=== PATIENT | female | born 1985 | race Caucasian/White ===

== ENCOUNTER 2018-02-20 22:19 | Observation (INO) | payer MEDICAID ==
[2018-02-20] MEDS ORDERED: PREN-96 PO (23:40)
== END 2018-02-20 23:27 | disposition home or self-care (01) | DRG 566 ==
LOC: LDRP 22:19
PROVIDERS: ADMIT Obstetrics & Gynecology; ATTEND Obstetrics & Gynecology
DX: O26.892 Other specified pregnancy related conditions, second trimester (principal); R10.2 Pelvic and perineal pain; M54.5 Low back pain; R10.30 Lower abdominal pain, unspecified; Z90.49 Acquired absence of other specified parts of digestive tract; Z87.442 Personal history of urinary calculi; Z87.891 Personal history of nicotine dependence; Z3A.25 25 weeks gestation of pregnancy
CPT/HCPCS: 59025; 81002; G0378

== ENCOUNTER 2019-03-25 14:11 | Emergency (ER) | payer MEDICAID ==
[~2019-03-25] VITALS: Ht 170.2 cm; Wt 97.5 kg
[~2019-03-25 14:11] MED LIST: PREN-96 PO
[2019-03-25 14:25] VITALS: BP 115/80
[2019-03-25] MEDS ORDERED: SUMAtriptan SUCCINATE 6 MG/0.5 ML VL SC ONE (15:15)
== END 2019-03-25 16:06 | disposition home or self-care (01) ==
LOC: ER 14:11
DX: G43.909 Migraine, unspecified, not intractable, without status migrainosus (principal); Z79.899 Other long term (current) drug therapy
CPT/HCPCS: 96372; 99283; J3030

== ENCOUNTER 2019-10-15 00:35 | Emergency (ER) | payer MEDICAID ==
[~2019-10-15] VITALS: Ht 170.2 cm; Wt 95.3 kg
[2019-10-15 01:21] LABS: Urine Bacteria MOD /hpf (None Seen); Urine Blood 2+ /uL (Negative); Urine Mucus FEW (None Seen); Urine Specific Gravity 1.036 (1.001-1.035); Urine WBC 100 /hpf (0 - 5)
[2019-10-15 01:24] LABS: Basophils # (auto) 0.1 uL; Basophils % (auto) 0.8 % (0.0-2.0); Eosinophils # (auto) 0.1 uL; Eosinophils % (auto) 0.5 % (0.0-7.0); Hematocrit 43.4 % (36.0-46.0); Hemoglobin 14.6 g/dL (12.2-16.2); Lymphocytes # (auto) 2.9 uL; Lymphocytes % (auto) 21.6 % (10.0-50.0); Mean Corpuscular Hemoglobin 29.1 pg (28.0-32.0); Mean Corpuscular Hgb Conc. 33.6 g/dL (32.0-36.0); Mean Corpuscular Volume 86.5 fL (80.0-100.0); Monocytes % (auto) 7.3 % (0.0-12.0); Neutrophils # (auto) 9.3 uL; Neutrophils % (auto) 69.8 % (37.0-80.0); Platelet Count (auto) 373 10^3/uL (140-450); Red Blood Cells 5.02 10^6/uL (4.0-5.20); Red Cell Distribution Width 13.3 % (11.8-14.3); White Blood Cell 13.4 10^3/uL (4.4-10.8)
[2019-10-15] MEDS ORDERED: SODIUM CHLORIDE 0.9% 500 ML IV ONE (01:28)
[2019-10-15] MEDS ORDERED: ONDANSETRON HCL 4 MG/2 ML VIAL IV ONE (01:30)
[2019-10-15 01:44] LABS: Albumin 3.6 g/dL (3.4-5.0); BUN/Creatinine Ratio 17.4; Calcium 8.5 mg/dL (8.5-10.1); Potassium 3.6 mmol/L (3.5-5.1)
[2019-10-15 01:46] LABS: Bilirubin, Total 0.3 mg/dL (0.2-1.0); Total Protein 7.6 g/dL (6.4-8.2)
[2019-10-15] MEDS ORDERED: PROMETHAZINE HCL 25 MG/ML 1ML IV ONE ×2 (04:15→06:15)
[2019-10-15] MEDS ORDERED: ONDANSETRON ODT 4 MG TAB PO ONE (05:30)
[2019-10-15 06:07] VITALS: BP 112/76
== END 2019-10-15 07:03 | disposition home or self-care (01) ==
LOC: ER 00:35
DX: O21.0 Mild hyperemesis gravidarum (principal); O23.41 Unspecified infection of urinary tract in pregnancy, first trimester; Z3A.01 Less than 8 weeks gestation of pregnancy
CPT/HCPCS: 36415; 76817; 80053; 81001; 82150; 83690; 84702; 85025; 96361; 96374; 96375; 96376; 99284; J2405; J2550; J7040; Q0162

== ENCOUNTER 2022-02-26 12:17 | Emergency (ER) | payer MEDICAID ==
[~2022-02-26] VITALS: Ht 170.2 cm; Wt 94.8 kg
[2022-02-26 12:18] VITALS: BP 115/82
[2022-02-26] MEDS ORDERED: AZIT500T66 PO (14:30)
[2022-02-26] MEDS ORDERED: PRED20TA2 PO (14:30)
[2022-02-26] MEDS ORDERED: PROM1SOL4 PO (14:30)
== END 2022-02-26 14:42 | disposition home or self-care (01) ==
LOC: ER 12:17
DX: J03.90 Acute tonsillitis, unspecified (principal); J06.9 Acute upper respiratory infection, unspecified

== ENCOUNTER 2022-07-04 12:18 | Emergency (ER) | payer MEDICAID ==
[~2022-07-04] VITALS: Ht 170.2 cm; Wt 97.0 kg
[~2022-07-04 12:18] MED LIST changes: +AZIT500T66 PO; +PRED20TA2 PO; +PROM1SOL4 PO
[2022-07-04 12:38] VITALS: BP 119/73
[2022-07-04 13:41] LABS: Urine Bacteria NONE SEEN /hpf (None Seen); Urine Blood TRACE /uL (Negative); Urine Specific Gravity 1.003 (1.001-1.035); Urine WBC 4 /hpf (0 - 5)
[2022-07-04] MEDS ORDERED: NITR-87 PO (14:56)
== END 2022-07-04 15:00 | disposition home or self-care (01) ==
LOC: ER 12:19
DX: O23.41 Unspecified infection of urinary tract in pregnancy, first trimester (principal); O34.81 Maternal care for other abnormalities of pelvic organs, first trimester; N39.0 Urinary tract infection, site not specified; N83.202 Unspecified ovarian cyst, left side; Z3A.01 Less than 8 weeks gestation of pregnancy
CPT/HCPCS: 36415; 76801; 81001; 81025; 84702

== ENCOUNTER 2023-02-20 20:39 | Emergency (ER) | payer MEDICAID ==
[~2023-02-20] VITALS: Ht 170.2 cm; Wt 103.4 kg
[~2023-02-20 20:39] MED LIST changes: +NITR-87 PO
[2023-02-20 21:38] LABS: Basophils # (auto) 0.1 10 ^3/uL (0-0.2); Basophils % (auto) 0.6 % (0.0-2.0); Eosinophils # (auto) 0.2 10 ^3/uL (0-0.8); Eosinophils % (auto) 2.6 % (0.0-7.0); Hematocrit 38.2 % (36.0-46.0); Hemoglobin 12.8 g/dL (12.2-16.2); Lymphocytes # (auto) 2.7 10 ^3/uL (0.4-5.4); Mean Corpuscular Hemoglobin 27.7 pg (28.0-32.0); Mean Corpuscular Hgb Conc. 33.4 g/dL (32.0-36.0); Mean Corpuscular Volume 83.2 fL (80.0-100.0); Monocytes # (auto) 0.7 10 ^3/uL (0-1.3); Monocytes % (auto) 7.9 % (0.0-12.0); Neutrophils # (auto) 5.5 10 ^3/uL (1.6-8.6); Neutrophils % (auto) 59.9 % (37.0-80.0); Nucleated Red Blood Cells % 0.1 %; Red Cell Distribution Width 14.6 % (11.8-14.3); White Blood Cell 9.2 10^3/uL (4.4-10.8)
[2023-02-20 21:42] LABS: Urine Bacteria NONE SEEN /hpf (None Seen); Urine Blood 3+ /uL (Negative); Urine Mucus FEW (None Seen); Urine WBC 15 /hpf (0 - 5)
[2023-02-20 21:54] LABS: Albumin 2.4 g/dL (3.4-5.0); Calcium 9.4 mg/dL (8.5-10.1); Potassium 4.1 mmol/L (3.5-5.1)
[2023-02-20 21:57] LABS: BUN/Creatinine Ratio 14.4 (10.0-20.0); Bilirubin, Total 0.2 mg/dL (0.2-1.0); Total Protein 6.3 g/dL (6.4-8.2)
[2023-02-20 22:00] LABS: INR 0.82 (0.9-1.15); Partial Thromboplastin Time 26.1 sec (24.6-33.4)
[2023-02-20] MEDS ORDERED: ACET1CAP14 PO (23:31)
[2023-02-20] MEDS ORDERED: CEPH-510 PO (23:31)
[2023-02-21] MEDS ORDERED: cefTRIAXone SOD 1,000 MG VL IM ONE (00:30)
[2023-02-21] MEDS ORDERED: LIDOCAINE 1% HCL (LOCAL ANESTH.) INJ 20ML MDV IJ ONE (00:30)
[2023-02-21 00:59] VITALS: BP 141/88
== END 2023-02-21 00:59 | disposition home or self-care (01) ==
LOC: ER 20:39
DX: R60.0 Localized edema (principal); N39.0 Urinary tract infection, site not specified; Z87.442 Personal history of urinary calculi; Z88.1 Allergy status to other antibiotic agents; Z90.49 Acquired absence of other specified parts of digestive tract
CPT/HCPCS: 36415; 80053; 81001; 85025; 85610; 85730; 93970; 96372; 99285; J0696; J2001

== ENCOUNTER 2023-06-15 17:01 | Emergency (ER) | payer MEDICAID ==
[~2023-06-15] VITALS: Ht 170.2 cm; Wt 98.0 kg
[~2023-06-15 17:01] MED LIST changes: +ACET1CAP14 PO; +CEPH-510 PO
[2023-06-15] MEDS ORDERED: ACETAMINOPHEN 500 MG TAB PO ONE (18:45)
[2023-06-15 20:09] VITALS: BP 119/84; PULSE 102; RESP 20; TEMP 97.5; O2SAT 96
[2023-06-15] MEDS ORDERED: ACET-6 PO (20:18)
== END 2023-06-15 20:53 | disposition home or self-care (01) ==
LOC: EDBD 17:01 → ER 17:01
DX: S43.492A Other sprain of left shoulder joint, initial encounter (principal); R51.9 Headache, unspecified; M54.2 Cervicalgia; R42 Dizziness and giddiness; M54.6 Pain in thoracic spine; K80.20 Calculus of gallbladder without cholecystitis without obstruction; Z87.442 Personal history of urinary calculi; Z79.1 Long term (current) use of non-steroidal anti-inflammatories (NSAID); Z79.899 Other long term (current) drug therapy; V89.2XXA Person injured in unspecified motor-vehicle accident, traffic, initial encounter; Y93.I9 Activity, other involving external motion; Y92.89 Other specified places as the place of occurrence of the external cause; Y99.8 Other external cause status
CPT/HCPCS: 70450; 71250; 72125; 73030; 74176

== ENCOUNTER 2023-08-16 08:33 | Emergency (ER) | payer MEDICAID ==
[~2023-08-16] VITALS: Ht 170.2 cm; Wt 97.0 kg
[~2023-08-16 08:33] MED LIST changes: +ACET-6 PO
[2023-08-16 09:15] VITALS: BP 116/83; PULSE 101; TEMP 98.5
[2023-08-16 10:16] LABS: Urine Bacteria None Seen /hpf (None Seen); Urine WBC None Seen /hpf (0 - 5)
[2023-08-16] MEDS ORDERED: ACETAMINOPHEN 325 MG TAB PO ONE (10:45)
[2023-08-16 11:24] LABS: COVID19 ANTIGEN SOFIA FIA NEGATIVE (NEGATIVE)
[2023-08-16 11:25] LABS: Rapid Strep A Screen-Throat Negative
[2023-08-16 12:08] LABS: Urine Clarity CLEAR (Clear); Urine Color Straw (Yellow); Urine Specific Gravity 1.015 (1.001-1.035)
[2023-08-16 12:09] LABS: Urine Blood 4+ /uL (Negative); Urine Protein, UAD Trace (Negative); Urine Urobilinogen Normal (Negative)
[2023-08-16] MEDS ORDERED: DexAMETHasone SOD PHOS 10MG/1ML VIAL INJ IM ONE (12:15)
[2023-08-16] MEDS ORDERED: ALBUTEROL SULF 2.5 MG/0.5ML(0.5%) NEB SOLN NEB ONE (12:15)
[2023-08-16] MEDS ORDERED: IPRATROPIUM BROM 0.5 MG/2.5ML INH SOL NEB ONE (12:15)
[2023-08-16] MEDS ORDERED: CEPH500C PO (12:18)
[2023-08-16] MEDS ORDERED: ALBUAER3 IN (12:18)
[2023-08-16] MEDS ORDERED: DEXT1SYP9 PO (12:18)
[2023-08-16] MEDS ORDERED: PRED20TA2 PO (12:18)
[2023-08-16 12:36] LABS: Urine Mucus FEW (None Seen)
[2023-08-16 12:45] VITALS: RESP 22; O2SAT 98
== END 2023-08-16 12:19 | disposition home or self-care (01) ==
LOC: ER 08:33
DX: J20.9 Acute bronchitis, unspecified (principal); R30.0 Dysuria; R06.02 Shortness of breath; Z87.442 Personal history of urinary calculi; Z32.02 Encounter for pregnancy test, result negative; Z20.822 Contact with and (suspected) exposure to COVID-19
CPT/HCPCS: 36415; 71045; 81001; 81025; 87070; 87426; 87880; 94640; 96372; 99284; J1100; J7644

== ENCOUNTER 2023-09-14 14:22 | Emergency (ER) | payer MEDICAID ==
[~2023-09-14] VITALS: Ht 170.2 cm; Wt 100.1 kg
[~2023-09-14 14:22] MED LIST changes: +ALBUAER3 IN; +CEPH500C PO; +DEXT1SYP9 PO
[2023-09-14 16:30] VITALS: BP 123/65; PULSE 86; RESP 16; TEMP 97; O2SAT 96
[2023-09-14] MEDS ORDERED: DexAMETHasone SOD PHOS 10MG/1ML VIAL INJ PO ONE (17:00)
[2023-09-14] MEDS ORDERED: BENZ100C97 PO (17:02)
[2023-09-14] MEDS ORDERED: PROM1SOL4 PO (17:02)
== END 2023-09-14 17:20 | disposition home or self-care (01) ==
LOC: ER 14:22
DX: J20.9 Acute bronchitis, unspecified (principal)
CPT/HCPCS: 71046; 99283; J1100

== ENCOUNTER 2023-12-09 07:01 | Emergency (ER) | payer MEDICAID ==
[~2023-12-09] VITALS: Ht 170.2 cm; Wt 99.1 kg
[~2023-12-09 07:01] MED LIST changes: +BENZ100C97 PO
[2023-12-09 08:05] VITALS: BP 121/86; PULSE 103; RESP 18; TEMP 98.2; O2SAT 100
== END 2023-12-09 08:19 | disposition home or self-care (01) ==
LOC: ER 07:01
DX: J03.90 Acute tonsillitis, unspecified (principal); J06.9 Acute upper respiratory infection, unspecified

== ENCOUNTER 2024-02-29 08:56 | Inpatient (IN) | payer MEDICAID ==
[~2024-02-29] VITALS: Ht 170.2 cm; Wt 93.0 kg
[2024-02-29 09:29] LABS: Basophils # (auto) 0 10 ^3/uL (0-0.2); Basophils % (auto) 0.7 % (0.0-2.0); Eosinophils # (auto) 0.1 10 ^3/uL (0-0.8); Eosinophils % (auto) 1.7 % (0.0-7.0); Hematocrit 44.4 % (36.0-46.0); Hemoglobin 14.7 g/dL (12.2-16.2); Lymphocytes # (auto) 1.8 10 ^3/uL (0.4-5.4); Lymphocytes % (auto) 33.7 % (10.0-50.0); Mean Corpuscular Hemoglobin 28.1 pg (28.0-32.0); Mean Corpuscular Hgb Conc. 33.1 g/dL (32.0-36.0); Mean Corpuscular Volume 84.9 fL (80.0-100.0); Monocytes # (auto) 0.9 10 ^3/uL (0-1.3); Neutrophils # (auto) 2.6 10 ^3/uL (1.6-8.6); Neutrophils % (auto) 47.9 % (37.0-80.0); Nucleated Red Blood Cells % 0.3 %; Red Blood Cells 5.23 10^6/uL (4.0-5.20); Red Cell Distribution Width 13.4 % (11.8-14.3); White Blood Cell 5.4 10^3/uL (4.4-10.8)
[2024-02-29 09:36] LABS: Urine Bacteria None Seen /hpf (None Seen)
[2024-02-29 09:44] LABS: Urine Blood 3+ /uL (Negative); Urine Clarity Ex.Turbid (Clear); Urine Color Red (Yellow); Urine Protein, UAD 2+ (Negative); Urine Specific Gravity 1.029 (1.001-1.035); Urine Urobilinogen Normal (Negative); Urine WBC 491 /hpf (0 - 5)
[2024-02-29 09:53] LABS: Alanine Aminotransferase 17 U/L (7-40); Albumin 4.6 g/dL (3.2-4.8); Alkaline Phosphatase 76 U/L (46-116); Anion Gap 6 (5-15); Aspartate Aminotransferase 28 U/L (13-40); BUN/Creatinine Ratio 11.5 (10.0-20.0); Blood Urea Nitrogen 9 mg/dL (9-23); Calcium 9.4 mg/dL (8.5-10.1); Carbon Dioxide 24 mmol/L (20-30); Chloride 108 mmol/L (98-107); Glucose 91 mg/dL (74-106); Potassium 4.4 mmol/L (3.5-5.1); Sodium 138 mmol/L (136-145)
[2024-02-29 09:54] LABS: Bilirubin, Total 0.4 mg/dL (0.2-1.0); Total Protein 7.3 g/dL (5.7-8.2)
[2024-02-29] MEDS: ACETAMINOPHEN 325 MG TAB PO ONE (09:56)
[2024-02-29] MEDS: SODIUM CHLORIDE 0.9% 1,000 ML IV ONE ×3 (10:43→16:03)
[2024-02-29] MEDS: ONDANSETRON HCL 4 MG/2 ML VIAL IV ONE (10:43)
[2024-02-29 10:47] VITALS: PULSE 74; RESP 19; O2SAT 99
[2024-02-29] MEDS: cefTRIAXone 1GM/50ML D5W 50 ML IV ONE (12:06)
[2024-02-29] MEDS ORDERED: cefTRIAXone 1GM/50ML D5W 50 ML IV ONE (14:00)
[2024-02-29] MEDS ORDERED: ONDANSETRON HCL 4 MG/2 ML VIAL IV PRN (15:00)
[2024-02-29] MEDS ORDERED: MORPHINE SULFATE INJ 2 MG/ml SYRG IV PRN (15:00)
[2024-02-29] MEDS ORDERED: NITROGLYCERIN 0.4 MG SL TAB SL PRN (15:00)
[2024-02-29] MEDS: ACETAMINOPHEN 325 MG TAB PO PRN (16:29)
[2024-03-01 04:38] LABS: Basophils # (auto) 0 10 ^3/uL (0-0.2); Basophils % (auto) 0.9 % (0.0-2.0); Eosinophils # (auto) 0.1 10 ^3/uL (0-0.8); Eosinophils % (auto) 1.6 % (0.0-7.0); Hematocrit 38.8 % (36.0-46.0); Hemoglobin 12.8 g/dL (12.2-16.2); Lymphocytes # (auto) 2.4 10 ^3/uL (0.4-5.4); Mean Corpuscular Hemoglobin 27.9 pg (28.0-32.0); Mean Corpuscular Hgb Conc. 33.1 g/dL (32.0-36.0); Mean Corpuscular Volume 84.4 fL (80.0-100.0); Monocytes # (auto) 0.7 10 ^3/uL (0-1.3); Monocytes % (auto) 14.8 % (0.0-12.0); Neutrophils # (auto) 1.5 10 ^3/uL (1.6-8.6); Neutrophils % (auto) 31.7 % (37.0-80.0); Red Blood Cells 4.59 10^6/uL (4.0-5.20); Red Cell Distribution Width 13.9 % (11.8-14.3); White Blood Cell 4.6 10^3/uL (4.4-10.8)
[2024-03-01 05:06] LABS: Alanine Aminotransferase 14 U/L (7-40); Albumin 4.2 g/dL (3.2-4.8); Alkaline Phosphatase 67 U/L (46-116); Anion Gap 5 (5-15); Aspartate Aminotransferase 17 U/L (13-40); BUN/Creatinine Ratio 9.3 (10.0-20.0); Bilirubin, Total 0.3 mg/dL (0.2-1.0); Blood Urea Nitrogen 7 mg/dL (9-23); Calcium 9.1 mg/dL (8.5-10.1); Carbon Dioxide 27 mmol/L (20-30); Chloride 110 mmol/L (98-107); Glucose 84 mg/dL (74-106); Potassium 4.2 mmol/L (3.5-5.1); Sodium 142 mmol/L (136-145); Total Protein 6.5 g/dL (5.7-8.2)
[2024-03-01] MEDS: PANTOPRAZOLE 40 MG TAB PO SCH (09:50)
[2024-03-01] MEDS: cefTRIAXone 1GM/50ML D5W 50 ML IV SCH (09:54)
[2024-03-01 15:45] VITALS: PULSE 77; RESP 19; O2SAT 97
[2024-03-01 17:06] VITALS: BP 107/67; PULSE 77; RESP 19; TEMP 98.1; O2SAT 97
[2024-03-01 20:00] VITALS: RESP 18
[2024-03-01 21:00] VITALS: BP 102/64; PULSE 65; RESP 17; TEMP 97.7; O2SAT 97
[2024-03-02 01:00] VITALS: BP 101/53; PULSE 72; RESP 16; TEMP 97.5; O2SAT 98
[2024-03-02 04:55] VITALS: BP 92/54; PULSE 67; RESP 20; TEMP 98.3; O2SAT 92
[2024-03-02 06:33] LABS: Anion Gap 5 (5-15); Carbon Dioxide 29 mmol/L (20-30); Chloride 109 mmol/L (98-107); Potassium 3.6 mmol/L (3.5-5.1); Sodium 143 mmol/L (136-145)
[2024-03-02 06:39] LABS: Blood Urea Nitrogen 8 mg/dL (9-23); Glucose 88 mg/dL (74-106)
[2024-03-02 08:00] VITALS: BP 98/57; PULSE 60; RESP 18; TEMP 97.6; O2SAT 97
[2024-03-02 09:00] VITALS: BP 98/57; PULSE 60; RESP 18; TEMP 97.6; O2SAT 97
[2024-03-02] MEDS ORDERED: CEPH500T PO (09:15)
[2024-03-02 09:22] VITALS: TEMP 36.8
[2024-03-02 10:57] VITALS: TEMP 36.4
[2024-03-02] MEDS ORDERED: CEPH500C PO (13:10)
== END 2024-03-02 11:46 | disposition home or self-care (01) | DRG 463 ==
LOC: ER 08:56 → OVERFLOW 14:50 → CENTRAL 03-01 15:35
PROVIDERS: ADMIT Nurse Practitioner Family; ATTEND Nurse Practitioner Acute Care
DX: N30.00 Acute cystitis without hematuria (principal); E66.9 Obesity, unspecified; K52.9 Noninfective gastroenteritis and colitis, unspecified; R73.03 Prediabetes; Z87.442 Personal history of urinary calculi; Z83.3 Family history of diabetes mellitus; Z82.49 Family history of ischemic heart disease and other diseases of the circulatory system; Z68.32 Body mass index [BMI] 32.0-32.9, adult
CPT/HCPCS: 36415; 74176; 80048; 80053; 81001; 85025; 87040; 87086; 96361; 96365; 96375; G0378; J2405

== ENCOUNTER 2024-03-22 11:24 | Emergency (ER) | payer MEDICAID ==
[~2024-03-22] VITALS: Ht 170.2 cm; Wt 94.0 kg
[2024-03-22 11:52] VITALS: PULSE 85; RESP 20; O2SAT 98
[2024-03-22 11:53] VITALS: RESP 18; O2SAT 98
[2024-03-22 13:24] LABS: Basophils # (auto) 0.1 10 ^3/uL (0-0.2); Basophils % (auto) 0.7 % (0.0-2.0); Eosinophils # (auto) 0.3 10 ^3/uL (0-0.8); Eosinophils % (auto) 1.7 % (0.0-7.0); Hematocrit 41.3 % (36.0-46.0); Hemoglobin 13.5 g/dL (12.2-16.2); Lymphocytes % (auto) 5.7 % (10.0-50.0); Mean Corpuscular Hgb Conc. 32.6 g/dL (32.0-36.0); Mean Corpuscular Volume 85.9 fL (80.0-100.0); Monocytes # (auto) 1.4 10 ^3/uL (0-1.3); Neutrophils # (auto) 14.2 10 ^3/uL (1.6-8.6); Neutrophils % (auto) 83.9 % (37.0-80.0); Nucleated Red Blood Cells % 0.2 %; Red Blood Cells 4.81 10^6/uL (4.0-5.20); Red Cell Distribution Width 13.5 % (11.8-14.3)
[2024-03-22 13:36] LABS: Albumin 4.2 g/dL (3.2-4.8); Alkaline Phosphatase 74 U/L (46-116); Anion Gap 7 (5-15); Aspartate Aminotransferase 14 U/L (13-40); Bilirubin, Total 0.4 mg/dL (0.2-1.0); Blood Urea Nitrogen 6 mg/dL (9-23); Calcium 9.3 mg/dL (8.5-10.1); Carbon Dioxide 23 mmol/L (20-30); Chloride 108 mmol/L (98-107); Glucose 96 mg/dL (74-106); Sodium 138 mmol/L (136-145); Total Protein 6.5 g/dL (5.7-8.2)
[2024-03-22 13:50] LABS: Alanine Aminotransferase < 9 U/L (7-40)
[2024-03-22 14:13] LABS: Urine Bacteria FEW /hpf (None Seen); Urine Blood TRACE /uL (Negative); Urine Clarity Clear (Clear); Urine Color Light-Yellow (Yellow); Urine Mucus FEW (None Seen); Urine Protein, UAD TRACE (Negative); Urine Specific Gravity 1.021 (1.001-1.035); Urine Urobilinogen Normal (Negative); Urine WBC 2 /hpf (0 - 5)
[2024-03-22] MEDS: SODIUM CHLORIDE 0.9% 1,000 ML IV ONE (15:00)
[2024-03-22] MEDS: SODIUM CHLORIDE 0.9% 1,000 ML IVB ONE (15:01)
[2024-03-22 15:50] LABS: Thyroid Stimulating Hormone 0.81 uIU/mL (0.55-4.78)
[2024-03-22 15:53] LABS: Beta HCG, Quantitative 0.6 mIU/mL (1.5-4.2)
[2024-03-22] MEDS: ACETAMINOPHEN 325 MG TAB PO ONE (17:45)
[2024-03-22 18:56] LABS: Rapid Strep A Screen-Throat Negative
[2024-03-22 19:17] LABS: COVID19 ANTIGEN SOFIA FIA NEGATIVE (NEGATIVE)
[2024-03-22 19:18] LABS: Rapid Influenza A Negative (Negative)
[2024-03-22 19:21] LABS: Rapid Influenza B Positive (Negative)
[2024-03-22] MEDS ORDERED: AMOX875T4 PO (19:43)
[2024-03-22] MEDS ORDERED: ZOFR4T PO (19:43)
[2024-03-22] MEDS ORDERED: OSEL75CA5 PO (19:43)
[2024-03-22] MEDS ORDERED: ACET500T58 PO (19:43)
[2024-03-22 19:53] VITALS: BP 120/72; PULSE 95; RESP 13; TEMP 98.7; O2SAT 95
[2024-03-22] MEDS: OSELTAMIVIR 75 MG CAP PO ONE (20:05)
[2024-03-22] MEDS: AMOXICILLIN/CLAVUL 875 MG TAB PO ONE (20:05)
== END 2024-03-22 20:15 | disposition home or self-care (01) ==
LOC: ER 11:24 → EDBD 11:24 → ER 20:15
DX: J11.1 Influenza due to unidentified influenza virus with other respiratory manifestations (principal); R10.2 Pelvic and perineal pain; R25.2 Cramp and spasm; K80.20 Calculus of gallbladder without cholecystitis without obstruction; Z87.442 Personal history of urinary calculi; Z79.899 Other long term (current) drug therapy; Z20.822 Contact with and (suspected) exposure to COVID-19
CPT/HCPCS: 36415; 71046; 80053; 81001; 83735; 84443; 84702; 85025; 87070; 87426; 87804; 87880; 93005; 96360; 96361; 99285; J7030

== ENCOUNTER 2025-03-14 09:46 | Emergency (ER) | payer MEDICAID ==
[~2025-03-14] VITALS: Ht 170.2 cm; Wt 91.3 kg
[~2025-03-14 09:46] MED LIST changes: +ACET500T58 PO; +AMOX875T4 PO; +OSEL75CA5 PO; +ZOFR4T PO
[2025-03-14 10:19] VITALS: BP 128/87; RESP 16; TEMP 97.3; O2SAT 98
--- NOTE | 2025-03-14 10:22 | ECG ---
[facility] Test Date: 2025-03-14 Test Time: 10:20:45 Pat Name: MATTHEW BENNETT Department: ER Room: Gender: F Seismograph Operator: KEITH : 1985 Requested By: JAMISON RIVERA Order Number: [id number] Reading MD: Luis Alberto Whelan Measurements Intervals [employer] Rate: 67 P: 78 MO: 155 QRS: 70 QRSD: 101 T: 10 QT: 417 QTc: 441 Interpretive Statements Sinus rhythm Consider left atrial enlargement Low voltage, precordial leads Baseline wander in lead(s) V4,V5,V6 Electronically Signed On 03-14-2025 12:49:36 PDT by Luis Alberto Whelan Please click the below link to view image of tracing.
[2025-03-14 10:48] VITALS: PULSE 67
--- NOTE | 2025-03-14 10:48 | ED.PDOC ---
HPI Comments 39 y/o F, with PMHx of kidney stones presents to the ED for CC of chest pain. Patient states, she has been experiencing left sided chest pain that radiates into her left shoulder and down her left arm onset, yesterday (03/13/25). Patient describes pain to be burning in sensation. Patient denies shortness of breath, palpations, dizziness, or headache. No other symptoms or modifying factors present at this time. Chief Complaint: Chest Pain Time Seen by MD: 10:50 Primary Care Provider: DANYEL Reviewed Notes: Nurses Notes, Medications, Allergies Allergies: Coded Allergies: NO KNOWN ALLERGIES (Unverified , 06/15/23) Home Meds Active Scripts Ondansetron Odt 4MG Tab (ZOFRAN PO) 4 Mg Tb, 4 MG PO TIDPRN PRN for 10 Days, #30 TAB ODT TAB-DISSOLVE IN MOUTH, THEN SWALLOW Prov:DUKE MINER DO 03/22/24 Acetaminophen (Acetaminophen) 500 Mg Tab, 500 MG PO QIDPRN for 10 Days, #40 TAB Prov:DUKE MINER DO 03/22/24 Oseltamivir Phosphate (Tamiflu) 75 Mg Cap, 1 CAP PO BID for 5 Days, #10 CAP Prov:DUKE MINER DO 03/22/24 Amoxicillin & Pot Clavulanate (Amoxicillin/Potassium Cla) 875 Mg Tab, 1 TAB PO BID for 10 Days, #20 TAB Prov:DUKE MINER DO 03/22/24 Cephalexin Monohydrate (Cephalexin) 500 Mg Cap, 1 CAP PO TID for 4 Days, #12 CAP Prov:RIC MARSH FINANCIAL SERVICES TECHNICIAN 03/02/24 Promethazine-Dm (Promethazine Dm 6.25-15 mg/5Ml) 1 Jael Jael, 5 ML PO TID, #150 ML Prov:SUNG GONZALEZ 12/09/23 Azithromycin (Azithromycin) 500 Mg Tab, 500 MG PO DAILY, #5 TAB Prov:SUNG GOZNALEZ PA 12/09/23 Benzonatate (Benzonatate) 100 Mg Cap, 1 CAP PO TIDP PRN for 10 Days, #30 CAP 0 Refills Prov:SURAJ MORALES FINANCIAL SERVICES TECHNICIAN 09/14/23 Promethazine-Dm (Promethazine Dm 6.25-15 mg/5Ml) 1 Jael Jael, 5 ML PO TIDP PRN for 10 Days, #150 ML 0 Refills Prov:SURAJ MORALES FINANCIAL SERVICES TECHNICIAN 09/14/23 Dextromethorphan-Guaifenesin (Robitussin-Dm) 10 Ml Sr, 10 ML PO Q8HR, #120 ML as needed for cough Prov:ELLIOTT PINA Q FINANCIAL SERVICES TECHNICIAN 08/16/23 Albuterol Sulfate (VENTOLIN MDI) 90 Mcg Ih, 1 PUFF IN Q4HR, #1 INH As needed for cough congestion wheezing shortness of breath Prov:ELLIOTT PINA Q FINANCIAL SERVICES TECHNICIAN 08/16/23 Prednisone (Prednisone) 20 Mg Tab, 1 TAB PO DAILY for 5 Days, #5 TAB start tomorrow wiht food Prov:ELLIOTT PINA Jimena FINANCIAL SERVICES TECHNICIAN 08/16/23 Cephalexin Monohydrate (Cephalexin) 500 Mg Cap, 1 CAP PO TID for 10 Days, #30 CAP Prov:ELLIOTT PINA Jimena FINANCIAL SERVICES TECHNICIAN 08/16/23 Acetaminophen (Acetaminophen Extra Stren) 500 Mg Tab, 500 MG PO QIDPRN for 10 Days, #40 TAB Prov:DUKE MINER DO 06/15/23 Acetaminophen (Tylenol) 325 Mg Cap, 325 MG PO Q4HPRN PRN, #30 CAP 0 Refills Take 1-2 caps po q4h prn for pain/fever (Do not exceed 3,000mg of acetaminophen in 24 hours) Prov:CHRISTA FRITZ ACCOUNTANT AUDITOR 02/20/23 Cephalexin ( Keflex 500) 500 Mg Cap, 1 CAP PO QID for 7 Days, #28 CAP 0 Refills Prov:CHRISTA FRITZ ACCOUNTANT AUDITOR 02/20/23 Nitrofurantoin Monohydrate Mac (Macrobid) 100 Mg Cap, 100 MG PO BID, #20 CAP Prov:SUNG GONZALEZ 07/04/22 Prednisone (Prednisone) 20 Mg Tab, 60 MG PO DAILY for 5 Days, #15 MG Prov:SUNG GONZALEZ 02/26/22 Reported Medications Vit W/ Ferrous Fumara ( One Daily) Daily Tab, 1 TAB PO DAILY, #90 TAB 3 Refills 02/20/18 Information Source: Patient Mode of Arrival: Ambulatory Severity: Moderate Timing: Days Duration: Since onset Prehospital treatment: None Location: Chest (L) Radiation: Arm (L) Quality: Burning Onset: At Rest Cardiac Risk Factors: None PE Risk Factors: None History of: None Modifying Factors: Nothing Associated Signs and Symptoms: None Past Medical History PAST MEDICAL HISTORY: Kidney Stones Surgical History: Cholecystectomy, 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: 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 all DOLL DRESSER Hx Family History Family History: Reviewed,noncontributory to illness, Family hx of DM, Family hx of heart fabrizio Social History Smoker: Non-Smoker Alcohol: Denies ETOH Use Drugs: Denies Drug Use Lives In: Home Constitutional: denies: chills, diaphoresis, fatigue, fever, malaise, sweats, weakness, others EENTM: denies: blurred vision, double vision, ear bleeding, ear discharge, ear drainage, ear pain, ear ringing, eye pain, eye redness, hearing loss, mouth pain, mouth swelling, nasal discharge, nose bleeding, nose congestion, nose pain, photophobia, tearing, throat pain, throat swelling, voice changes, others Respiratory: denies: cough, hemoptysis, orthopnea, SOB at rest, shortness of breath, SOB with excertion, stridor, wheezing, others Cardiovascular: reports: chest pain, left arm pain; denies: dizzy spells, diaphoresis, Dyspnea on exertion, edema, irregular heart beat, lightheadedness, palpitations, PND, syncope, others Gastrointestinal: reports: nausea; denies: abdomen distended, abdominal pain, blood streaked bowels, constipated, diarrhea, dysphagia, difficulty swallowing, hematemesis, melena, poor appetite, poor fluid intake, rectal bleeding, rectal pain, vomiting, others Genitourinary: denies: abnormal vagina bleeding, burning, dyspareunia, dysuria, flank pain, frequency, hematuria, incontinence, pain, , vagina discharge, urgency, others Neurological: denies: dizziness, fainting, headache, left sided numbness, left sided weakness, numbness, paresthesia, pre-existing deficit, right sided numbness, right sided weakness, seizure, speech problems, tingling, tremors, weakness, others Musculoskeletal: denies: back pain, gout, joint pain, joint swelling, muscle pain, muscle stiffness, neck pain, others Integumetry: denies: bruises, change in color, change in hair/nails, dryness, laceration, lesions, lumps, rash, wounds, others Allergic/Immunocompromised: denies: Difficulty Healing, Frequent Infections, Hives, Itching, others Hematologic/Lymphatic: denies: anemia, blood clots, easy bleeding, easy bruising, swollen glands, others Endocrine: denies: excessive hunger, excessive sweating, excessive thirst, excessive urination, flushing, intolerance to cold, intolerance to heat, unexplained weight gain, unexplained weight loss, others Psychiatric: denies: anxiety, bipolar disorder, depression, hopeless, panic disorder, schizophrenia, sleepless, suicidal, others All Other Systems: Reviewed and Negative Physical Exam General Appearance: No Apparent Distress HEENT: Normal ENT Inspection, Pharynx Normal, TMs Normal Neck: Full Range of Motion, Non-Tender, Normal, Normal Inspection Respiratory: Chest Non-Tender, Lungs Clear, No Accessory Muscle Use, No Respira tory Distress, Normal Breath Sounds Cardiovascular: No Edema, No JVD, No Murmur, No Gallop, Normal Peripheral Pulses, Regular Rate/Rhythm Breast Exam: Deferred Gastrointestinal: No Organomegaly, Non Tender, No Pulsatile Mass, Normal Bowel Sounds, Soft Genitalia: Deferred Pelvic: Deferred Rectal: Deferred Extremities: No calf tenderness, Normal capillary refill, Normal inspection, Normal range of motion, Non-tender, No pedal edema Musculoskeletal : Apperance: Normal Neurologic: Alert, shrimp trawler captain II-XII nml as Tested, No Motor Deficits, Normal Affect, Normal Mood, No Sensory Deficits Cerebellar Function: Normal Reflexes: Normal Skin: Dry, Normal Color, Warm Lymphatic: No Adenopathy EKG EKG : Pulse Rate (adult): 67 [place]: LAD Cardiac Rhythm: NSR Block: None Hypertrophy: None ST: Normal Was a procedure done? Was a procedure done?: No CP Differential Dx Differential Diagnosis: N/A Differential Diagnosis: Chest Wall Pain, Costochondritis, Esophageal reflux/spasm, Gastritis X-Ray, Labs, Meds, VS Vital Signs Date Time Temp Pulse Resp B/P (MAP) Pulse Ox O2 Delivery O2 Flow Rate FiO2 03/14/25 10:48 67 03/14/25 10:20 67 03/14/25 10:19 97.3 73 16 128/87 (101) 98 97.3 Lab Test 03/14/25 11:25 03/14/25 10:25 Range/Units Troponin I High Sensitivity < 3 L < 3 L </=34 ng/L White Blood Count 7.2 4.4-10.8 10^3/uL Red Blood Count 5.16 4.0-5.20 10^6/uL Hemoglobin 14.6 12.2-16.2 g/dL Hematocrit 42.8 36.0-46.0 % Mean Corpuscular Volume 82.8 80.0-100.0 fL Mean Corpuscular Hemoglobin 28.3 28.0-32.0 pg Mean Corpuscular Hemoglobin Concent 34.1 32.0-36.0 g/dL Red Cell Distribution Width 14.2 11.8-14.3 % Platelet Count 353 140-450 10^3/uL Mean Platelet Volume 6.9 6.9-10.8 fL Neutrophils (%) (Auto) 54.8 37.0-80.0 % Lymphocytes (%) (Auto) 35.4 10.0-50.0 % Monocytes (%) (Auto) 8.0 0.0-12.0 % Eosinophils (%) (Auto) 0.9 0.0-7.0 % Basophils (%) (Auto) 0.9 0.0-2.0 % Neutrophils # (Auto) 4.0 1.6-8.6 10 ^3/uL Lymphocytes # (Auto) 2.6 0.4-5.4 10 ^3/uL Monocytes # (Auto) 0.6 0-1.3 10 ^3/uL Eosinophils # (Auto) 0.1 0-0.8 10 ^3/uL Basophils # (Auto) 0.1 0-0.2 10 ^3/uL Nucleated Red Blood Cells 0.0 % D-Dimer, Quantitative 0.43 0.0-0.49 mg/L FEU Sodium Level 140 136-145 mmol/L Potassium Level 4.2 3.5-5.1 mmol/L Chloride Level 105 98-107 mmol/L Carbon Dioxide Level 28 20-31 mmol/L Anion Gap 7 5-15 Blood Urea Nitrogen 12 9-23 mg/dL Creatinine 0.87 0.550-1.02 mg/dL Glomerular Filtration Rate Calc 88 >90 mL/min BUN/Creatinine Ratio 13.8 10.0-20.0 Serum Glucose 93 74-106 mg/dL Calcium Level 10.1 8.7-10.4 mg/dL CXR: IMPRESSION: No evidence of acute disease. THE PATIENT'S CBC IS WITHIN NORMAL LIMITS THE CHEMISTRY PANEL IS WITHIN NORMAL LIMITS THE D-DIMER IS NEGATIVE THE TROPONIN LEVEL X2 IS NEGATIVE THE PATIENT IS BEING DISCHARGED WITH A DIAGNOSIS OF CHEST PAIN AND POSSIBLE ANXIETY Images Reviewed?: Images reviewed and evaluated by me Time of 1ST Reevaluation: 10:30 Reevaluation 1ST: Unchanged Patient Education/Counseling: Diagnosis, Treatment, Prognosis, Need For Follow Up Family Education/Counseling: No Family Present Departure 1 Departure Time of Disposition: 13:06 Impression: Primary Impression: Musculoskeletal chest pain Disposition: 01 HOME / SELF CARE / HOMELESS Condition: Fair Discharged With: Self Critical Care Note Critical Care Time?: No Stability Stability form required: No Heart Score Heart Score: Heart Score Response (Comments) Value History Slightly Suspicious 0 EKG Normal 0 Age <45 0 Risk Factors 1 or 2 risk factors 1 Troponin N/A 0 Total 1 I personally scribed for HEIDE VIEIRA MD ([email or web address]) on 03/14/25 at 10:48. Electronically submitted by Kellen Hopper ([email or web address]). I personally scribed for HEIDE VIEIRA MD ([email or web address]) on 03/14/25 at 11:05. Electronically submitted by Kellen Hopper ([email or web address]). HEIDE VIEIRA MD March 14, 2025 10:48
[2025-03-14 11:01] LABS: Basophils # (auto) 0.1 10 ^3/uL (0-0.2); Basophils % (auto) 0.9 % (0.0-2.0); Eosinophils # (auto) 0.1 10 ^3/uL (0-0.8); Eosinophils % (auto) 0.9 % (0.0-7.0); Hematocrit 42.8 % (36.0-46.0); Hemoglobin 14.6 g/dL (12.2-16.2); Lymphocytes # (auto) 2.6 10 ^3/uL (0.4-5.4); Lymphocytes % (auto) 35.4 % (10.0-50.0); Mean Corpuscular Hemoglobin 28.3 pg (28.0-32.0); Mean Corpuscular Hgb Conc. 34.1 g/dL (32.0-36.0); Mean Corpuscular Volume 82.8 fL (80.0-100.0); Monocytes # (auto) 0.6 10 ^3/uL (0-1.3); Neutrophils % (auto) 54.8 % (37.0-80.0); Platelet Count (auto) 353 10^3/uL (140-450); Red Blood Cells 5.16 10^6/uL (4.0-5.20); Red Cell Distribution Width 14.2 % (11.8-14.3); White Blood Cell 7.2 10^3/uL (4.4-10.8)
--- NOTE | 2025-03-14 11:03 | DVH ---
CHEST RADIOGRAPH Indication: CP Technique: Frontal and lateral view of the chest was obtained Comparison: XY CHEST TWO VIEWS ROUTINE on DOS: 03/22/24, XY CHEST TWO VIEWS ROUTINE on DOS: 09/14/23, CHEST TWO VIEWS ROUTINE on DOS: 07/03/19 FINDINGS: Lines and Tubes: None Lungs: Clear Pleura: No effusion. No pneumothorax. Cardiomediastinal contours: Unremarkable Bones: Unremarkable IMPRESSION: No evidence of acute disease.
[2025-03-14 11:06] LABS: Anion Gap 7 (5-15); Carbon Dioxide 28 mmol/L (20-31); Chloride 105 mmol/L (98-107); Potassium 4.2 mmol/L (3.5-5.1); Sodium 140 mmol/L (136-145)
[2025-03-14 11:07] LABS: Calcium 10.1 mg/dL (8.7-10.4)
[2025-03-14 11:11] LABS: Glucose 93 mg/dL (74-106)
[2025-03-14 11:12] LABS: BUN/Creatinine Ratio 13.8 (10.0-20.0); Blood Urea Nitrogen 12 mg/dL (9-23)
[2025-03-14 13:18] LABS: Urine Bacteria None Seen /hpf (None Seen)
[2025-03-14 13:23] LABS: Urine Blood 3+ /uL (Negative); Urine Clarity Clear (Clear); Urine Color Colorless (Yellow); Urine Protein, UAD Negative (Negative); Urine Specific Gravity 1.003 (1.001-1.035); Urine Squamous Epithelial Cell FEW /hpf (<5); Urine Urobilinogen Normal (Negative); Urine WBC < 1 /HPF (0-5); Urine pH 6.5 (5.0-9.0)
[2025-03-14] MEDS: ASPirin 81 mg TAB PO ONE (14:43)
== END 2025-03-14 15:04 | disposition home or self-care (01) ==
LOC: ER 09:46
DX: R07.89 Other chest pain (principal); M25.512 Pain in left shoulder; Z87.442 Personal history of urinary calculi; Z90.49 Acquired absence of other specified parts of digestive tract; Z98.890 Other specified postprocedural states
CPT/HCPCS: 36415; 71046; 80048; 81001; 84484; 85025; 85379; 93005

== ENCOUNTER 2025-10-30 20:17 | Emergency (ER) | payer MEDICAID ==
[~2025-10-30] VITALS: Ht 170.2 cm; Wt 91.0 kg
--- NOTE | 2025-10-30 20:48 | ED.PDOC ---
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 EMS [facility] [place] [facility]UD [facility] today when pelvic pain first began. EMS administered Tylenol to Pt but did not find improvement in symptoms. Pt also has associated symptoms of nausea but denies symptoms of dizziness, headache, D/V at this time. No other associated symptoms, modifiers, recent injuries or sick contacts present at this time. Chief Complaint: Pelvic Pain Time Seen by MD: 20:47 Reviewed Notes: Nurses Notes, Prepress Stripper Notes, Medications, Allergies Allergies: Coded Allergies: NO KNOWN ALLERGIES (Unverified , 06/15/23) Home Meds Active Scripts Cefdinir (Cefdinir) 300 Mg Cap, 1 CAP PO BID for 7 Days, #14 CAP Prov:SCAR HUNG MD 10/31/25 Ondansetron Odt 4MG Tab (ZOFRAN PO) 4 Mg Tb, 4 MG PO TIDPRN PRN for 10 Days, #30 TAB ODT TAB-DISSOLVE IN MOUTH, THEN SWALLOW Prov:DUKE MINER DO 03/22/24 Acetaminophen (Acetaminophen) 500 Mg Tab, 500 MG PO QIDPRN for 10 Days, #40 TAB Prov:DUKE MINER DO 03/22/24 Oseltamivir Phosphate (Tamiflu) 75 Mg Cap, 1 CAP PO BID for 5 Days, #10 CAP Prov:DUKE MINER DO 03/22/24 Amoxicillin & Pot Clavulanate (Amoxicillin/Potassium Cla) 875 Mg Tab, 1 TAB PO BID for 10 Days, #20 TAB Prov:DUKE MINER DO 03/22/24 Cephalexin Monohydrate (Cephalexin) 500 Mg Cap, 1 CAP PO TID for 4 Days, #12 CAP Prov:RIC MARSH NP 03/02/24 Promethazine-Dm (Promethazine Dm 6.25-15 mg/5Ml) 1 Jael Jael, 5 ML PO TID, #150 ML Prov:SUNG GONZALEZ 12/09/23 Azithromycin (Azithromycin) 500 Mg Tab, 500 MG PO DAILY, #5 TAB Prov:SUNG GONZALEZ 12/09/23 Benzonatate (Benzonatate) 100 Mg Cap, 1 CAP PO TIDP PRN for 10 Days, #30 CAP 0 Refills Prov:SURAJ MORALES AURICULAR DETOXIFICATION SPECIALIST 09/14/23 Promethazine-Dm (Promethazine Dm 6.25-15 mg/5Ml) 1 Jael Jael, 5 ML PO TIDP PRN for 10 Days, #150 ML 0 Refills Prov:SURAJ MORALES AURICULAR DETOXIFICATION SPECIALIST 09/14/23 Dextromethorphan-Guaifenesin (Robitussin-Dm) 10 Ml Sr, 10 ML PO Q8HR, #120 ML as needed for cough Prov:ELLIOTT PINA Q AURICULAR DETOXIFICATION SPECIALIST 08/16/23 Albuterol Sulfate (VENTOLIN MDI) 90 Mcg Ih, 1 PUFF IN Q4HR, #1 INH As needed for cough congestion wheezing shortness of breath Prov:ELLIOTT PINA Q AURICULAR DETOXIFICATION SPECIALIST 08/16/23 Prednisone (Prednisone) 20 Mg Tab, 1 TAB PO DAILY for 5 Days, #5 TAB start tomorrow wiht food Prov:ELLIOTT PINA Q AURICULAR DETOXIFICATION SPECIALIST 08/16/23 Cephalexin Monohydrate (Cephalexin) 500 Mg Cap, 1 CAP PO TID for 10 Days, #30 CAP Prov:ELLIOTT PINA Jimena AURICULAR DETOXIFICATION SPECIALIST 08/16/23 Acetaminophen (Acetaminophen Extra Stren) 500 Mg Tab, 500 MG PO QIDPRN for 10 Days, #40 TAB Prov:DUKE MINER DO 06/15/23 Acetaminophen (Tylenol) 325 Mg Cap, 325 MG PO Q4HPRN PRN, #30 CAP 0 Refills Take 1-2 caps po q4h prn for pain/fever (Do not exceed 3,000mg of acetaminophen in 24 hours) Prov:CHRISTA FRITZ FISH ROE PROCESSOR 02/20/23 Cephalexin ( Keflex 500) 500 Mg Cap, 1 CAP PO QID for 7 Days, #28 CAP 0 Refills Prov:CHRISTA FRITZ FISH ROE PROCESSOR 02/20/23 Nitrofurantoin Monohydrate Mac (Macrobid) 100 Mg Cap, 100 MG PO BID, #20 CAP Prov:SUNG GONZALEZ 07/04/22 Prednisone (Prednisone) 20 Mg Tab, 60 MG PO DAILY for 5 Days, #15 MG Prov:SUNG GONZALEZ 02/26/22 Reported Medications Vit W/ Ferrous Fumara ( One Daily) Daily Tab, 1 TAB PO DAILY, #90 TAB 3 Refills 02/20/18 Past Medical History PAST MEDICAL HISTORY: Kidney Stones Surgical History: Cholecystectomy, RADIATION ONCOLOGY THERAPIST History: Denies all RADIATION ONCOLOGY THERAPIST Hx Family History Family History: Reviewed,noncontributory to illness, Family hx of DM, Family hx of heart fabrizio Social History Smoker: Non-Smoker Alcohol: Denies ETOH Use Drugs: Denies Drug Use Lives In: Home Constitutional: denies: chills, diaphoresis, fatigue, fever, malaise, sweats, weakness, others EENTM: denies: blurred vision, double vision, ear bleeding, ear discharge, ear drainage, ear pain, ear ringing, eye pain, eye redness, hearing loss, mouth pain, mouth swelling, nasal discharge, nose bleeding, nose congestion, nose pain, photophobia, tearing, throat pain, throat swelling, voice changes, others Respiratory: denies: cough, hemoptysis, orthopnea, SOB at rest, shortness of breath, SOB with excertion, stridor, wheezing, others Cardiovascular: denies: chest pain, dizzy spells, diaphoresis, Dyspnea on exertion, edema, irregular heart beat, left arm pain, lightheadedness, palpitations, PND, syncope, others Gastrointestinal: denies: abdomen distended, abdominal pain, blood streaked bowels, constipated, diarrhea, dysphagia, difficulty swallowing, hematemesis, melena, nausea, poor appetite, poor fluid intake, rectal bleeding, rectal pain, vomiting, others Genitourinary: reports: others (pelvic pain); denies: abnormal vagina bleeding, burning, dyspareunia, dysuria, flank pain, frequency, hematuria, incontinence, pain, , vagina discharge, urgency Neurological: denies: dizziness, fainting, headache, left sided numbness, left sided weakness, numbness, paresthesia, pre-existing deficit, right sided numbness, right sided weakness, seizure, speech problems, tingling, tremors, weakness, others Musculoskeletal: denies: back pain, gout, joint pain, joint swelling, muscle pain, muscle stiffness, neck pain, others Integumetry: denies: bruises, change in color, change in hair/nails, dryness, laceration, lesions, lumps, rash, wounds, others Allergic/Immunocompromised: denies: Difficulty Healing, Frequent Infections, Hives, Itching, others Hematologic/Lymphatic: denies: anemia, blood clots, easy bleeding, easy bruising, swollen glands, others Endocrine: denies: excessive hunger, excessive sweating, excessive thirst, excessive urination, flushing, intolerance to cold, intolerance to heat, unexplained weight gain, unexplained weight loss, others Psychiatric: denies: anxiety, bipolar disorder, depression, hopeless, panic disorder, schizophrenia, sleepless, suicidal, others All Other Systems: Reviewed and Negative Physical Exam General Appearance: No Apparent Distress, Normal HEENT: Normal ENT Inspection, Pharynx Normal, TMs Normal Neck: Full Range of Motion, Non-Tender, Normal, Normal Inspection Respiratory: Chest Non-Tender, Lungs Clear, No Accessory Muscle Use, No Respiratory Distress, Normal Breath Sounds Cardiovascular: No Edema, No JVD, No Murmur, No Gallop, Normal Peripheral Pulses, Regular Rate/Rhythm Breast Exam: Deferred Gastrointestinal: No Organomegaly, Non Tender, No Pulsatile Mass, Normal Bowel Sounds, Soft Genitalia: Deferred Pelvic: Deferred Rectal: Deferred Extremities: No calf tenderness, Normal capillary refill, Normal inspection, Normal range of motion, Non-tender, No pedal edema Musculoskeletal : Apperance: Normal Neurologic: Alert, clinical analyst II-XII nml as Tested, No Motor Deficits, Normal Affect, Normal Mood, No Sensory Deficits Cerebellar Function: Normal Reflexes: Normal Skin: Dry, Normal Color, Warm Lymphatic: No Adenopathy Was a procedure done? Was a procedure done?: No X-Ray, Labs, Meds, VS Vital Signs Date Time Temp Pulse Resp B/P (MAP) Pulse Ox O2 Delivery O2 Flow Rate FiO2 10/30/25 23:03 Room Air* 0 21 10/30/25 22:59 97.6 67 16 103/64 (77) 100 97.6 10/30/25 20:25 98.1 75 18 104/71 97 98.1 Lab Test 10/30/25 22:00 10/30/25 21:13 Range/Units Urine Color Yellow Yellow Urine Clarity Clear Clear Urine pH 7.0 5.0-9.0 Urine Specific [place] > 1.050 H 1.001-1.035 Urine Protein 1+ H Negative Urine Ketones Negative Negative Urine Blood 1+ H Negative /uL Urine Nitrite Negative Negative Urine Bilirubin Negative Negative Urine Urobilinogen Normal Negative mg/dL Urine Leukocyte Esterase Negative Negative /uL Urine RBC 36 0 - 4 /hpf Urine Microscopic WBC 2 0-5 /HPF Urine Squamous Epithelial Cells Few <5 /hpf Urine Bacteria None seen None Seen /hpf Urine Mucus Few None Seen Urine Glucose Normal Normal mg/dL White Blood Count 12.2 H 4.4-10.8 10^3/uL Red Blood Count 4.48 4.0-5.20 10^6/uL Hemoglobin 12.1 L 12.2-16.2 g/dL Hematocrit 36.8 36.0-46.0 % Mean Corpuscular Volume 82.1 80.0-100.0 fL Mean Corpuscular Hemoglobin 27.0 L 28.0-32.0 pg Mean Corpuscular Hemoglobin Concent 32.9 32.0-36.0 g/dL Red Cell Distribution Width 13.7 11.8-14.3 % Platelet Count 324 140-450 10^3/uL Mean Platelet Volume 6.9 6.9-10.8 fL Neutrophils (%) (Auto) 71.5 37.0-80.0 % Lymphocytes (%) (Auto) 19.9 10.0-50.0 % Monocytes (%) (Auto) 7.5 0.0-12.0 % Eosinophils (%) (Auto) 0.5 0.0-7.0 % Basophils (%) (Auto) 0.6 0.0-2.0 % Neutrophils # (Auto) 8.7 H 1.6-8.6 10 ^3/uL Lymphocytes # (Auto) 2.4 0.4-5.4 10 ^3/uL Monocytes # (Auto) 0.9 0-1.3 10 ^3/uL Eosinophils # (Auto) 0.1 0-0.8 10 ^3/uL Basophils # (Auto) 0.1 0-0.2 10 ^3/uL Nucleated Red Blood Cells 0.1 % Sodium Level 142 136-145 mmol/L Potassium Level 4.0 3.5-5.1 mmol/L Chloride Level 108 H 98-107 mmol/L Carbon Dioxide Level 26 20-31 mmol/L Anion Gap 8 5-15 Blood Urea Nitrogen 11 9-23 mg/dL Creatinine 0.74 0.550-1.02 mg/dL Glomerular Filtration Rate Calc 106 >90 mL/min BUN/Creatinine Ratio 14.9 10.0-20.0 Serum Glucose 103 74-106 mg/dL Calcium Level 8.1 L 8.7-10.4 mg/dL Current Medications Medications (Trade) Dose Ordered Sig/Leia Route Start Time Stop Time Status Last Admin Ondansetron HCl (Zofran) 4 mg ONCE ONCE IV 10/30/25 21:00 10/30/25 21:01 DC 10/30/25 23:02 Sodium Chloride 1,000 ml @ 1,000 mls/hr Q1H ONCE IVB 10/30/25 21:00 10/30/25 21:59 DC 10/30/25 23:03 X-Ray, Labs, Meds, VS Comment [place] [address] Ph: [phone] DIAGNOSTIC IMAGING Diagnostic Imaging Report : [id number] Signed PATIENT: MATTHEW BENNETT ACCT: [id number] UNIT: [id number] : 1985 LOC: ER ROOM / BED: / AGE / SEX: 40 / F ADM STATUS: REG ER SERVICE 51 ORDERING PHYSICIAN: SCAR HUNG MD PROCEDURE(s): ABPLIV - CT AB PEL WITH IV CON ONLY REASON: lower abd pain s/p IUD procedure today ORDER NUMBER(s): [id number], ACCESSION NUMBER(s): [id number] EXAM: CT CT AB PEL WITH IV CON ONLY History: lower abd pain s/p IUD procedure today COMPARISON: CT ABD/PEL W - IV on DOS: 12/29/24, CT CT AB PEL WO CON-NO ORAL OR IV on DOS: 03/01/24, CT [facility] AB PEL WO CON-NO IV/ORAL on DOS: 06/15/23 TECHNIQUE: Multidetector spiral CT of the abdomen and pelvis was performed from lung bases to pubic symphysis. Intravenous contrast was administered during this examination. Portal venous imaging was obtained. Axial, coronal and sagittal multiplanar reformats were performed by the technologist on a separate workstation. Radiation Dose : 1. Abdomen/Pelvis: CTDIvol 24.1mGy, DLP 1482.62 mGy*cm. CONTRAST: Type of contrast: Omnipaque 300 Contrast injected: 100 ml FINDINGS: Lung Bases: No acute or significant lung base finding. Normal heart size. No pleural or pericardial effusion. Liver: The liver is normal in size. No focal lesions. Normal hepatic vascular enhancement. Gallbladder and Biliary Tree: Gallbladder is surgically absent. Spleen: Unremarkable Pancreas: The pancreas is normal in appearance without focal lesions or abnormal enhancement. Adrenal Glands: Unremarkable Kidneys: No hydronephrosis. Bladder: Unremarkable Bowel: The stomach is grossly normal in appearance. Small bowel and colon are normal in caliber and distribution. Normal appendix is visualized in the right lower quadrant without findings of appendicitis. Ascites: Absent Lymphadenopathy: No mesenteric, retroperitoneal or periportal lymphadenopathy. Abdominal Wall and Mesentery: Unremarkable. Vasculature: The visualized abdominal aorta is normal in size and caliber. Abdominal and pelvic vessels demonstrate normal enhancement. Pelvic Organs: IUD in-situ. Musculoskeletal: No aggressive focal bony lesions, acute fractures or dislocation. IMPRESSION: No acute abdominal or pelvic finding. Radiation optimization: All CT scans at this facility use at least one of these dose optimization techniques: automated exposure control mA and/or kV adjustment per patient size (includes targeted exams where dose is matched to clinical indication) or iterative reconstruction. ATED BY: JAVIER ALEXANDER MD DICTATED DATE/TIME: 10/31/2529 SIGNED BY: JAVIER ALEXANDER MD SIGNED DATE/TIME: 10/31/2529 CC: Time of 1ST Reevaluation: 21:27 Reevaluation 1ST: Unchanged Patient Education/Counseling: Diagnosis, Treatment, Need For Follow Up Family Education/Counseling: No Family Present Departure 1 Departure Time of Disposition: 23:00 Impression: Primary Impression: Pelvic pain Additional Impression: Post procedure discomfort Disposition: 01 HOME / SELF CARE / HOMELESS Condition: Stable e-Prescriptions Cefdinir (Cefdinir) 300 Mg Cap 1 CAP PO BID for 7 Days, #14 CAP Prov: SCAR HUNG MD 10/31/25 Discharged With: Self Critical Care Note Critical Care Time?: No Stability Stability form required: No Heart Score Heart Score: Heart Score Response (Comments) Value History N/A 0 EKG N/A 0 Age N/A 0 Risk Factors N/A 0 Troponin N/A 0 Total 0 I personally scribed for SCAR HUNG MD ([email or web address]) on 10/30/25 at 20:48. Electronically submitted by Trish Loving ([email or web address]). I personally scribed for SCAR HUNG MD ([email or web address]) on 10/31/25 at 00:49. Electronically submitted by Trish Loving ([email or web address]). SCAR HUNG MD Oct 30, 2025 20:48
[2025-10-30 21:35] LABS: Hematocrit 36.8 % (36.0-46.0); Hemoglobin 12.1 g/dL (12.2-16.2); Nucleated Red Blood Cells % 0.1 %
[2025-10-30 21:37] LABS: Mean Corpuscular Hemoglobin 27.0 pg (28.0-32.0); Mean Corpuscular Volume 82.1 fL (80.0-100.0)
[2025-10-30 21:42] LABS: Potassium 4.0 mmol/L (3.5-5.1); Sodium 142 mmol/L (136-145)
[2025-10-30 21:43] LABS: Anion Gap 8 (5-15); Carbon Dioxide 26 mmol/L (20-31)
[2025-10-30 21:48] LABS: BUN/Creatinine Ratio 14.9 (10.0-20.0); Blood Urea Nitrogen 11 mg/dL (9-23); Glucose 103 mg/dL (74-106)
[2025-10-30 21:54] LABS: Calcium 8.1 mg/dL (8.7-10.4); Chloride 108 mmol/L (98-107)
[2025-10-30 22:59] VITALS: BP 103/64; PULSE 67; RESP 16; TEMP 97.6; O2SAT 100
[2025-10-30] MEDS: ONDANSETRON HCL 4 MG/2 ML VIAL IV ONE (23:02)
[2025-10-30] MEDS: HYDROmorphone HCL 2 MG/ML VL/or syr IV ONE (23:03)
[2025-10-30] MEDS: SODIUM CHLORIDE 0.9% 1,000 ML IVB ONE (23:03)
[2025-10-30] MEDS: IOHEXOL 300 MG/ML 100ML BOTTLE IJ ONE (23:16)
--- NOTE | 2025-10-31 00:33 | DVH ---
EXAM: CT CT AB PEL WITH IV CON ONLY History: lower abd pain s/p IUD procedure today COMPARISON: CT ABD/PEL W - IV on DOS: 12/29/24, CT CT AB PEL WO CON-NO ORAL OR IV on DOS: 03/01/24, CT [facility]ST AB PEL WO CON-NO IV/ORAL on DOS: 06/15/23 TECHNIQUE: Multidetector spiral CT of the abdomen and pelvis was performed from lung bases to pubic symphysis. Intravenous contrast was administered during this examination. Portal venous imaging was obtained. Axial, coronal and sagittal multiplanar reformats were performed by the technologist on a separate workstation. Radiation Dose : 1. Abdomen/Pelvis: CTDIvol 24.1mGy, DLP 1482.62 mGy*cm. CONTRAST: Type of contrast: Omnipaque 300 Contrast injected: 100 ml FINDINGS: Lung Bases: No acute or significant lung base finding. Normal heart size. No pleural or pericardial effusion. Liver: The liver is normal in size. No focal lesions. Normal hepatic vascular enhancement. Gallbladder and Biliary Tree: Gallbladder is surgically absent. Spleen: Unremarkable Pancreas: The pancreas is normal in appearance without focal lesions or abnormal enhancement. Adrenal Glands: Unremarkable Kidneys: No hydronephrosis. Bladder: Unremarkable Bowel: The stomach is grossly normal in appearance. Small bowel and colon are normal in caliber and distribution. Normal appendix is visualized in the right lower quadrant without findings of appendicitis. Ascites: Absent Lymphadenopathy: No mesenteric, retroperitoneal or periportal lymphadenopathy. Abdominal Wall and Mesentery: Unremarkable. Vasculature: The visualized abdominal aorta is normal in size and caliber. Abdominal and pelvic vessels demonstrate normal enhancement. Pelvic Organs: IUD in-situ. Musculoskeletal: No aggressive focal bony lesions, acute fractures or dislocation. IMPRESSION: No acute abdominal or pelvic finding. Radiation optimization: All CT scans at this facility use at least one of these dose optimization techniques: automated exposure control mA and/or kV adjustment per patient size (includes targeted exams where dose is matched to clinical indication) or iterative reconstruction.
[2025-10-31] MEDS ORDERED: CEFD300C2 PO (00:49)
[2025-10-31 04:43] LABS: Urine Protein, UAD 1+ (Negative)
== END 2025-10-31 01:50 | disposition home or self-care (01) ==
LOC: EDBD 20:17 → ER 20:17
DX: R10.20 Pelvic and perineal pain unspecified side (principal); Z87.442 Personal history of urinary calculi; Z90.49 Acquired absence of other specified parts of digestive tract
CPT/HCPCS: 36415; 74177; 80048; 81001; 85025; 96361; 96374; 99285; J1171; J2405; J7030; Q9967